=== PATIENT | male | born 1965 | race Caucasian/White ===

== ENCOUNTER 2021-06-17 06:14 | Emergency (ER) | payer OTHER ==
[~2021-06-17] VITALS: Ht 188 cm; Wt 129.3 kg
[2021-06-17] MEDS ORDERED: ASPIRIN 81 MG TAB.CHEW ONE (06:44)
[2021-06-17] MEDS ORDERED: DILTIAZEM HCL 25 MG IV ONE (06:44)
--- NOTE | 2021-06-17 06:59 | NUR ---
BIBWIFE FROM HOME TO ER BED 8. AAOX4. NOT IN RESP DISTRESS, BREATHING EVEN AND UNLABORED. AMBULATORY. CAME IN FOR AN ON AND OFF PALPITATIONS WHICH HAS BEEN GOING ON SINCE AFTER HE GOT COVID BACK IN [facility]IL. DENIES ANY CP. PT VEBALIZED THAT HE FEELS HIS HR UP AND DOWN AT TIME. PT WAS HOOKED ON MONITOR AND NOTED AFIB. EKG WAS DONE. MD WAS AT THE BEDSIDE FOR EVAL. ORDERS RECEIVED, NOTED AND CARRIED OUT. IV LINE ESTABLISHED ON R AC 20G. BLOOD DRAWN.
[2021-06-17] MEDS ORDERED: DILTIAZEM HCL 50 MG IV IV ONE (07:00)
[2021-06-17] MEDS ORDERED: ASPIRIN 81 MG TAB.CHEW PO ONE (07:00)
--- NOTE | 2021-06-17 07:03 | NUR ---
YACHT RIGGER AT PT'S BEDSIDE
--- NOTE | 2021-06-17 07:22 | NUR ---
ASSESSED PT ON BED AAAOX4, NOT IN RESPIRATORY DISTRESS, V/S STABLE, KEPT RESTED AND COMFORTABLE. WILL CONTINUE TO MONITOR.
[2021-06-17 07:24] LABS: BASOPHILS % (AUTO) 0.4 % (0.0-2.0); EOSINOPHILS % (AUTO) 1.8 % (0.0-6.0); HEMATOCRIT 43 % (39-51); HEMOGLOBIN 14.3 g/dL (13.5-17.5); LYMPHOCYTES # (AUTO) 2.2 K/uL (0.8-4.8); LYMPHOCYTES % (AUTO) 29.7 % (20.0-44.0); MEAN CORPUSCULAR HGB CONC 33 g/dl (31.0-36.0); MEAN CORPUSCULAR VOLUME 85 fL (80-96); MONOCYTES # (AUTO) 0.4 K/uL (0.1-1.30); MONOCYTES % (AUTO) 5.9 % (2.0-12.0); NEUTROPHILS # (AUTO) 4.7 K/uL (1.8-8.9); NEUTROPHILS % (AUTO) 62.2 % (43.0-81.0); PLATELET COUNT (AUTO) 233 K/uL (150-450); RED BLOOD CELL COUNT(AUTO) 5.01 MIL/uL (4.5-6.0); WHITE BLOOD COUNT (AUTO) 7.5 K/uL (4.3-11.0)
[2021-06-17] MEDS ORDERED: hydrALAZINE HCL IV 20 MG VIAL ONE (07:51)
[2021-06-17] MEDS ORDERED: hydrALAZINE HCL IV 20 MG VIAL IV ONE (08:00)
[2021-06-17 08:02] LABS: CALCIUM, SERUM 9.3 mg/dL (8.5-10.1); CARBON DIOXIDE 30 mmol/L (21-32); CHLORIDE 105 mmol/L (98-107); CREATININE 0.9 mg/dL (0.6-1.3); GLUCOSE 101 mg/dL (74-106); POTASSIUM 3.5 mmol/L (3.5-5.1); SODIUM SERUM 141 mmol/L (136-145); UREA NITROGEN, BLOOD 24 mg/dL (7-18)
--- NOTE | 2021-06-17 08:20 | NUR ---
CARDIOLOGY CALLED DIRECTOR PLANS PAGED. CHELA
[2021-06-17] MEDS ORDERED: LABETALOL HCL IV 100MG VIAL ONE (08:50)
[2021-06-17] MEDS ORDERED: LABETALOL HCL IV 100MG VIAL IV ONE (09:00)
[2021-06-17] MEDS ORDERED: METO25TA6 PO (10:33)
[2021-06-17] MEDS ORDERED: AMLO10TA4 PO (10:33)
[2021-06-17 11:31] VITALS: BP 142/81
== END 2021-06-17 11:47 | disposition home or self-care (01) ==
LOC: ER 06:14
DX: I48.91 Unspecified atrial fibrillation (principal); I11.9 Hypertensive heart disease without heart failure; Z79.83 Long term (current) use of bisphosphonates; Z79.899 Other long term (current) drug therapy; Z86.16 Personal history of COVID-19
CPT/HCPCS: 36415; 71045; 80048; 84443; 84484; 85025; 93005 ×2; 93307; 96374; 96375; 99285; J0360; J3490 ×2